=== PATIENT | female | born 1990 | race Caucasian/White ===

== ENCOUNTER 2023-05-28 01:17 | Emergency (ER) | payer SELFPAY ==
[2023-05-28 01:19] VITALS: BP 123/83; PULSE 75; RESP 16; TEMP 36.6; O2SAT 99; BMI 15.6
--- NOTE | 2023-05-28 01:23 | HMH.EDGENADL ---
Discharge Plan Disposition Patient Disposition: Home, Self-Care Prescriptions Prescriptions: New nitrofurantoin macrocrystal 100 mg capsule 100 mg PO BID 5 Days Qty: 10 0RF Rx Instructions: must administer with a meal/food ondansetron HCl 4 mg tablet 4 mg PO Q8H PRN (Reason: nausea and vomiting) 5 Days Qty: 30 0RF oxycodone 5 mg tablet 5 mg PO Q8H PRN (Reason: pain) Qty: 12 0RF Referrals Follow up/Referrals: Provider,Referral, MD [Primary Care Provider] - See instructions Activity Restrictions/Add. Instructions Additional Instructions/Restrictions: Please take Macrobid as prescribed for urinary tract infection. Please take Tylenol and ibuprofen as needed for pain. Please take oxycodone as needed for severe pain. Please take Zofran as needed for nausea and vomiting. Please follow-up with one of our [employer] for further assessment. Clinical Impressions Clinical Impression: Miscarriage, Abdominal pain, Vagina bleeding, UTI (urinary tract infection) Instructions Patient Instructions: DI for Acute Abdominal Pain Discharge ED Provider: Sean Sosa General Adult HPI General Chief complaint: Abdominal Pain Stated complaint: possible miscarrage,bleeding Time Seen by Provider: 05/28/23 01:20 History of Present Illness HPI narrative: 32-year-old female, G2, P1 presents with worsening crampy abdominal pain and intermittent vaginal bleeding. She reports that she found out she was on the of this month, 3 days ago, when she presented to an outside ER for abdominal pain. At that time she was noted to have a beta-hCG of 973, she had a transvaginal ultrasound which showed intrauterine gestational sac and normal bilateral ovaries. She was given RhoGAM at that time. She reports that her last menstrual period began on April 10. Her prior was many years ago, and resulted with an uncomplicated vaginal delivery. She reports that she is continue to have occasional clots and drips of blood, reports intermittent sharp elevated pain. Related Data Previous Rx's Medication Instructions Recorded nitrofurantoin macrocrystal 100 mg 100 mg PO BID 5 days #10 caps 05/28/23 capsule ondansetron HCl 4 mg tablet 4 mg PO Q8H PRN nausea and 05/28/23 vomiting 5 days #30 tabs oxycodone 5 mg tablet 5 mg PO Q8H PRN pain #12 tabs 05/28/23 Allergies Allergy/AdvReac Type Severity Reaction Status Date / Time No Known Allergies Allergy Verified 05/28/23 01:40 [facility] Disclaimer: The information contained in this section may have been updated after the patient was seen, as this information can be updated by other users. Social History Smoking Status: Current every day smoker alcohol intake: never current occupational status: employed Travel in the last 8 weeks: None ROS Obtained: Yes All systems reviewed & no additional complaints except as documented Physical Exam General General appearance: alert and in distress (Secondary to pain) Head Head exam: atraumatic and normocephalic Eye Eye exam: Present normal appearance, PERRL and EOMI ENT ENT exam: Present normal oropharynx and normal external ear exam Neck Neck exam: Present normal inspection and full ROM Chest Chest inspection: Present normal inspection and symmetric chest wall rise; Absent tenderness Respiratory Respiratory exam: Present normal lung sounds bilaterally; Absent respiratory distress Cardiovascular Cardiovascular exam: Present regular rate and normal rhythm Abdominal Exam Abdominal exam: Present soft and tenderness (Pelvic); Absent distention or guarding Extremities Exam Extremities exam: Present normal inspection; Absent edema or joint swelling Back Exam Back exam: Present normal inspection; Absent tenderness Neurological Exam Neurological exam: Present alert and oriented X3; Absent motor sensory deficit Psychiatric Psychiatric exam: Present normal affect and normal mood Skin Skin exam: Present war
--- NOTE | 2023-05-28 01:31 | PC.NURSE ---
in room talking with patient at this time.
[2023-05-28 01:46] LABS: Microscopic, Urine URINE MICROSCOPIC (MICROSCOPIC)
[2023-05-28 01:48] LABS: Basophils % 0.6 % (0.1-2.0); Eosinophils # 0.2 K/mm3 (0.0-0.4); Eosinophils % 2.5 % (0.1-12.0); Hematocrit 38.6 % (37.0-47.0); Hemoglobin 12.9 g/dL (12.2-16.2); Lymphocytes # 2.5 K/mm3 (0.7-4.5); Lymphocytes % 41.9 % (10-50); Mean Corpuscular HGB Conc 33.5 g/dL (31.8-35.4); Mean Corpuscular Hemoglobin 31.3 pg (27.0-31.2); Mean Corpuscular Volume 93.3 fl (81-99); Mean Platelet Volume 7.7 fl (7.4-10.4); Monocytes # 0.4 K/mm3 (0.1-1.0); Monocytes % 6.2 % (1.7-9.3); Neutrophils % 48.8 % (37.0-80.0); Platelet Count 258 K/mm3 (142-424); Red Blood Count 4.14 M/mm3 (4.20-5.40); Red Cell Distribution Width 12.7 % (11.5-17.5); White Blood Count 6.1 K/mm3 (4.8-10.8)
[2023-05-28 01:54] LABS: Alanine Aminotransferase 23 U/L (12-78); Alkaline Phosphatase 67 U/L (38-126); Aspartate Amino Transferase 30 U/L (14-36); Bilirubin,Total 0.3 mg/dl (0.2-1.3); Blood Urea Nitrogen 9 mg/dl (7-17); Carbon Dioxide 17 mmol/L (22.0-30.0); Chloride 112 mmol/L (98-107); Creatinine Clearance Estimated 118 mL/min (50-200); Estimated Glomerular Filt Rate 145 ml/min (>60); GFR (African American) 175 ML/MIN (>60)
[2023-05-28 01:56] LABS: Albumin Level 4.2 g/dl (3.5-5.0); Albumin/Globulin Ratio 1.3 (1.1-1.8); Anion Gap 13.6 mEq/L (5-15); Globulin 3.3 g/dL (1.3-3.2); Glucose 95 mg/dl (74-100); Potassium 3.6 mmoL/L (3.5-5.1); Sodium 139 mmol/L (136-145); Total Protein,Serum 7.5 g/dl (6.3-8.2)
--- NOTE | 2023-05-28 01:57 | PC.NURSE ---
called [facility] emergency room for release of medical records at this time.
[2023-05-28 02:00] VITALS: PULSE 61; O2SAT 96
--- NOTE | 2023-05-28 02:03 | PC.NURSE ---
Faxed release of medical records for leonela Rice at this time.
[2023-05-28 02:12] LABS: HCG,Quantitative 42 mIU/ml (0-5.42)
[2023-05-28 02:14] LABS: Appearance,Urine SL CLOUDY (Clear); Bilirubin,Urine Negative (Negative); Blood, Urine 3+ (Negative); Color,Urine YELLOW (Yellow); Glucose,Urine (UA) Negative (Negative); Ketones,Urine Negative (Negative); Leukocyte Esterase,Urine 3+ (Negative); Nitrate,Urine Negative (Negative); Protein,Urine Negative (Negative); Urobilinogen,Urine 0.2 EU/dl (0.2)
[2023-05-28 02:28] LABS: Bacteria,Urine 2+ /lpf; WBC,Urine 20-50 #/hpf (0-3)
--- NOTE | 2023-05-28 02:28 | PC.NURSE ---
in room talking with patient at this time.
[2023-05-28 02:30] VITALS: BP 126/83; PULSE 58; RESP 14; O2SAT 100
[2023-05-28 02:47] VITALS: BP 126/83; PULSE 77; RESP 16; TEMP 36.8; O2SAT 100
== END 2023-05-28 02:57 | disposition home or self-care (01) ==
PROVIDERS: Emergency Provider Emergency Medicine
DX: O03.9 Complete or unspecified spontaneous abortion without complication (principal); N39.0 Urinary tract infection, site not specified
CPT/HCPCS: 80053; 81001; 84702; 85025; 86850; 86870; 87086; 96361; 96374; 96375; 99285; J2405

== ENCOUNTER 2024-04-17 09:48 | Outpatient (CLI) | payer MEDICAID, SELFPAY ==
[2024-04-17 10:07] LABS: Basophils # 0.1 K/mm3 (0-0.2); Basophils % 0.6 % (0.1-2.0); Eosinophils # 0.1 K/mm3 (0.0-0.4); Eosinophils % 1.3 % (0.1-12.0); Lymphocytes # 1.4 K/mm3 (0.7-4.5); Lymphocytes % 15.9 % (10-50); Mean Corpuscular HGB Conc 33.4 g/dL (31.8-35.4); Mean Corpuscular Hemoglobin 31.7 pg (27.0-31.2); Mean Corpuscular Volume 94.9 fl (81-99); Mean Platelet Volume 7.6 fl (7.4-10.4); Monocytes # 0.6 K/mm3 (0.1-1.0); Monocytes % 6.4 % (1.7-9.3); Neutrophils # 6.8 K/mm3 (1.8-7.8); Neutrophils % 75.8 % (37.0-80.0); Platelet Count 290 K/mm3 (142-424); Red Blood Count 3.79 M/mm3 (4.20-5.40); Red Cell Distribution Width 13.1 % (11.5-17.5); White Blood Count 8.9 K/mm3 (4.8-10.8)
[2024-04-17 11:54] LABS: HIV (1&2) Antibody Rapid NONREACTIVE (NONREACTIVE)
[2024-04-18 07:24] LABS: HCV Ab Non Reactive (Non Reactive); Hepatitis B Surface Antigen Negative (Negative); Rubella Antibodies, IgG <0.90 index (Immune >0.99)
== END 2024-04-17 23:59 | disposition home or self-care (01) ==
LOC: LAB 09:50
PROVIDERS: Visit Provider Obstetrics & Gynecology
DX: Z34.81 Encounter for supervision of other normal pregnancy, first trimester (principal)
CPT/HCPCS: 36415; 85025; 86593; 86762; 86803; 86850; 87086; 87340; 87389

== ENCOUNTER 2024-04-21 13:22 | Outpatient (CLI) | payer MEDICAID, SELFPAY ==
--- NOTE | 2024-04-21 13:22 | US_ITS ---
PROCEDURE: US OB >= 14 WEEKS FETUS CLINICAL INDICATION: Dates/Anatomy Scan COMPARISON: No exams were available for comparison FINDINGS: Transabdominal sonographic images of the pelvis were obtained. Her established due date is unknown. Single viable intrauterine gestation. Cephalic position. Placenta: Posteriorplacenta grade 1. There are multiple placental lakes. There is an average amount of fluid. The cervix appears satisfactory. Closed and measuring 3.13 cm in length. Complete survey performed and was unremarkable on the submitted images as in PACS. No discrete anomalies identified on survey imaging by technologist. Active fetus. Three-vessel cord with satisfactory umbilical cord insertion. 4- chamber heart noted. Situs, aortic arch, LVOT, RVOT, three-vessel view appear normal. A small echogenic foci is noted in the left ventricle. Survey of brain & ventricles Unremarkable. Cerebellum, thalamus, choroid plexus, cisterna magna appear normal. Face and neck survey unremarkable. Profile, nasion, lips and nose appeared normal. Diaphragm and chest views unremarkable. Abdomen: Both kidneys noted and unremarkable. Stomach and bladder noted and satisfactory. Spine: Survey of the spine satisfactory with no anomalies identified nor imaged. Cervical, thoracic, lower spine appear normal. Both arms and legs noted. Amniotic Fluid: Adequate. MVP 4.33 cm. Measurements: Average ultrasound age 25weeks 0 days. Estimated due date by ultrasound age 0308/04/2024. Estimated weight 725g BPD = 25weeks 3days HC = 24weeks 5days AC = 24weeks 6days FL = 24weeks 4days Heart Rate = 143bpm Cerebellum = 24weeks 3days Humerus = 23weeks 3days HC/AC is 1.12 FL/BPD is 0.7 FL/AC is 0.22 IMPRESSION: 1. Fetus within the uterine cavity in the cephalic presentation with a posterior placenta grade 1. There are multiple placental lakes. 2. cardiac activity is seen and measures 143 BPM. 3. Anatomical scan appears normal. A small likely nonsignificant echogenic foci is seen within the left ventricle. Suggest follow-up at 28 weeks. 4. Fetus measures 25 weeks 0 days. Her JENNIFER will be 08/04/2024 based on this ultrasound. Dictated by: Lawrence Gilbert MD 04/21/2024 15:49 Lawrence Gilbert MD in OV 04/21/2024 15:49
== END 2024-04-21 23:59 | disposition home or self-care (01) ==
LOC: RAD 13:22
PROVIDERS: PCP Obstetrics & Gynecology; Visit Provider Obstetrics & Gynecology
DX: O26.842 Uterine size-date discrepancy, second trimester (principal); Z3A.20 20 weeks gestation of pregnancy; Z36.3 Encounter for antenatal screening for malformations
CPT/HCPCS: 76805

== ENCOUNTER 2024-04-29 11:51 | Outpatient (CLI) | payer MEDICAID, SELFPAY ==
[2024-05-02 09:21] LABS: Treponema pallidum Ab (FTA-ABS NONREACTIVE
== END 2024-04-29 23:59 | disposition home or self-care (01) ==
LOC: LAB 11:51
PROVIDERS: Visit Provider Obstetrics & Gynecology
DX: A53.0 Latent syphilis, unspecified as early or late (principal)
CPT/HCPCS: 36415; 86780

== ENCOUNTER 2024-05-19 09:41 | Outpatient (CLI) | payer MEDICAID, SELFPAY ==
[2024-05-19 10:29] LABS: Basophils # 0.1 K/mm3 (0-0.2); Basophils % 0.5 % (0.1-2.0); Eosinophils # 0.2 K/mm3 (0.0-0.4); Eosinophils % 1.8 % (0.1-12.0); Hemoglobin 12.1 g/dL (12.2-16.2); Lymphocytes # 1.6 K/mm3 (0.7-4.5); Lymphocytes % 14.7 % (10-50); Mean Corpuscular HGB Conc 34.6 g/dL (31.8-35.4); Mean Corpuscular Hemoglobin 31.8 pg (27.0-31.2); Mean Corpuscular Volume 91.9 fl (81-99); Mean Platelet Volume 7.9 fl (7.4-10.4); Monocytes # 0.6 K/mm3 (0.1-1.0); Monocytes % 5.6 % (1.7-9.3); Neutrophils # 8.4 K/mm3 (1.8-7.8); Neutrophils % 77.3 % (37.0-80.0); Platelet Count 279 K/mm3 (142-424); White Blood Count 10.9 K/mm3 (4.8-10.8)
[2024-05-19 10:37] LABS: Chloride 105 mmol/L (98-107); Potassium 3.6 mmoL/L (3.5-5.1); Sodium 130 mmol/L (136-145)
[2024-05-19 10:39] LABS: Blood Urea Nitrogen 8 mg/dl (7-17); Estimated Glomerular Filt Rate 117 ml/min (>60); GFR (African American) 141 ML/MIN (>60)
[2024-05-19 10:40] LABS: Alanine Aminotransferase 22 U/L (12-78); Anion Gap 6.6 mEq/L (5-15); Aspartate Amino Transferase 29 U/L (14-36); Calcium 8.7 mg/dl (8.4-10.2); Carbon Dioxide 22 mmol/L (22.0-30.0); Glucose 133 mg/dl (74-100)
[2024-05-19 10:52] LABS: Glucose,Fasting 135 mg/dl (74-100)
[2024-05-19 11:12] LABS: Activated Partial Thrombo Time 26.7 seconds (22.8-30.6); Fibrinogen 246 mg/dL (229.9-363.5); INR 0.86 (0.9-1.1); Prothrombin Time 9.8 seconds (10.1-12.5)
[2024-05-19] MEDS: RHO(D) IMMUNE GLOBULIN 1,500 UNIT (300MCG) SYRINGE 300 MCG IM (11:26)
[2024-05-19 11:28] VITALS: BP 112/61; PULSE 61; RESP 18; O2SAT 97
[2024-05-19 11:57] LABS: Hemoglobin A1C 4.7 % (4.0-6.0)
[2024-05-19 12:13] LABS: Uric Acid 3.3 mg/dl (2.5-6.2)
[2024-05-19 14:53] LABS: RPR W/RFX Titers Nonreactive (Nonreactive)
[2024-05-19 17:43] LABS: Glucose 1 Hour 135 mg/dL (74-100)
== END 2024-05-19 11:28 | disposition home or self-care (01) ==
LOC: INF 09:43
PROVIDERS: Visit Provider Obstetrics & Gynecology
DX: Z3A.37 37 weeks gestation of pregnancy (principal); O26.899 Other specified pregnancy related conditions, unspecified trimester; F12.90 Cannabis use, unspecified, uncomplicated; O99.320 Drug use complicating pregnancy, unspecified trimester; O09.30 Supervision of pregnancy with insufficient antenatal care, unspecified trimester
CPT/HCPCS: 36415; 80048; 82951; 83036; 84450; 84460; 84550; 85025; 85384; 85610; 85730; 86592; 96372; J2790

== ENCOUNTER 2024-05-30 10:31 | Outpatient (CLI) | payer MEDICAID, SELFPAY ==
--- NOTE | 2024-05-30 10:31 | US_ITS ---
PROCEDURE: US OB FOLLOW UP CLINICAL INDICATION: demonstrated small intracardiac echogenic focus. COMPARISON: US US OB >= 14 WEEKS FETUS from 04/21/2024 FINDINGS: Transabdominal sonographic images of the pelvis were obtained. The following parameters are obtained: From her established due date she is 30weeks 5days Viable fetus in the breech presentation with a posterior placenta grade 2. The previously described placental lakes are not well visualized today. The cervix measures 3.35 cm. heart rate: 132bpm bpm. BPD: 31weeks 2days, 55 percentile HC: 31weeks 3days, 29 percentile AC: 30weeks 3days, 36 percentile FL: 28weeks 2days, <2 percentile HC/AC: 1.09 FL/BPD: 0.68 FL/AC: 0.2 Growth percentile: Amniotic fluid index: 19.49cm, MVP 5.85 cm No obvious anomalies evident. profile seen, stomach, bladder, kidneys, three-vessel cord, four chamber heart appear normal. There continues to be a small intracardiac echogenic foci in the left ventricle. It measures 3 mm. There is an area in the maternal bladder that is echogenic with posterior shadowing. Could represent a maternal stone or mural nodule. It measures 2.3 cm x 2.2 cm. Suggest follow-up. IMPRESSION: 1. Viable fetus in the breech presentation with a posterior placenta grade 2. The previously described placental lakes have resolved. 2. The fluid is within normal limits with an amniotic fluid index 19.49 cm, MVP 5.85 cm. 3. Limited anatomical scan appears normal. There continues to be a small intracardiac echogenic foci in the left ventricle measuring 3 mm. Has not significantly changed. 4. Within the maternal bladder is an echogenic area with posterior shadowing. This could represent a maternal bladder stone or possibly a mural nodule. It measures 2.3 x 2.2 cm. Suggest follow-up. 5. There has been good interval growth with the fetus currently 14th percentile. The femur length is 2 weeks behind. Dictated by: Lawrence Gilbert MD 05/30/2024 17:40 Lawrence Gilbert MD in OV 05/30/2024 17:40
== END 2024-05-30 23:59 | disposition home or self-care (01) ==
LOC: RAD 10:31
PROVIDERS: PCP Obstetrics & Gynecology; Visit Provider Obstetrics & Gynecology
DX: Z36.2 Encounter for other antenatal screening follow-up (principal); O26.893 Other specified pregnancy related conditions, third trimester; Z67.91 Unspecified blood type, Rh negative; O99.323 Drug use complicating pregnancy, third trimester; F12.90 Cannabis use, unspecified, uncomplicated; F17.290 Nicotine dependence, other tobacco product, uncomplicated; Z3A.30 30 weeks gestation of pregnancy
CPT/HCPCS: 76816

== ENCOUNTER 2024-07-09 16:32 | Outpatient (CLI) | payer MEDICAID, SELFPAY | END 2024-07-09 23:59 | disposition home or self-care (01) | LOC: LAB.DROPOF 16:32 | PROVIDERS: PCP Obstetrics & Gynecology; Visit Provider Obstetrics & Gynecology | DX: Z34.83 Encounter for supervision of other normal pregnancy, third trimester (principal) | CPT/HCPCS: 86403 ==

== ENCOUNTER 2024-08-06 13:27 | Inpatient (IN) | payer MEDICAID, SELFPAY ==
[2024-08-06 14:00] VITALS: BP 112/63; PULSE 100; RESP 18; TEMP 36.8; O2SAT 98; BMI 26.4
[2024-08-06 14:39] VITALS: BMI 26.4
[2024-08-06 15:17] LABS: Basophils # 0.1 K/mm3 (0-0.2); Basophils % 0.4 % (0.1-2.0); Eosinophils # 0.1 K/mm3 (0.0-0.4); Eosinophils % 0.6 % (0.1-12.0); Hematocrit 31.3 % (37.0-47.0); Hemoglobin 10.4 g/dL (12.2-16.2); Lymphocytes # 1.2 K/mm3 (0.7-4.5); Mean Corpuscular HGB Conc 33.2 g/dL (31.8-35.4); Mean Corpuscular Hemoglobin 29.3 pg (27.0-31.2); Mean Corpuscular Volume 88.2 fl (81-99); Mean Platelet Volume 10.4 fl (7.4-10.4); Monocytes % 8.4 % (1.7-9.3); Neutrophils # 9.2 K/mm3 (1.8-7.8); Neutrophils % 79.7 % (37.0-80.0); Platelet Count 264 K/mm3 (142-424); Red Blood Count 3.55 M/mm3 (4.20-5.40); Red Cell Distribution Width 12.2 % (11.5-17.5); White Blood Count 11.5 K/mm3 (4.8-10.8)
[2024-08-06 15:24] LABS: Microscopic, Urine URINE MICROSCOPIC (MICROSCOPIC)
[2024-08-06] MEDS: miSOPROStol 100MCG TABLET 50 MCG PO ×2 (15:40→21:48)
[2024-08-06 15:46] LABS: Bilirubin,Urine Negative (Negative); Blood, Urine TRACE-I (Negative); Color,Urine YELLOW (Yellow); Glucose,Urine (UA) Negative (Negative); Ketones,Urine Negative (Negative); Leukocyte Esterase,Urine 2+ (Negative); Nitrate,Urine POSITIVE (Negative); PH,Urine 6.5 (5.0-8.5); Protein,Urine Negative (Negative); Specific Gravity, Urine 1.025 (1.005-1.030); Urobilinogen,Urine 0.2 EU/dl (0.2)
[2024-08-06 15:53] LABS: Appearance,Urine Slightly Cloudy (Clear)
[2024-08-06 19:43] LABS: Bacteria,Urine 2+ /lpf
[2024-08-06 20:41] LABS: Benzodiazepines Screen,Urine Negative ng/ml (<200)
[2024-08-06 20:42] LABS: Amphetamine/Metha Screen,Urine Negative ng/ml (<1000)
[2024-08-06 20:43] LABS: Barbiturates Screen,Urine Negative ng/ml (<200); Cannabinoid Screen,Urine Negative ng/ml (<50)
[2024-08-06 20:44] LABS: Cocaine Screen,Urine Negative ng/ml (<300)
[2024-08-06 20:45] LABS: Methadone Screen,Urine Negative ng/ml (<300); Opiate Screen,Urine Negative ng/ml (<300)
[2024-08-06 20:46] LABS: Phencyclidine Screen,Urine Negative ng/ml (<25)
--- NOTE | 2024-08-06 21:15 | P.HP_ITS ---
OB - H&P: HPI Antepartum History of Present Illness Chief complaint: Scheduled induction of labor History of present illness: Ms Sana De Santiago is a 33 yo at 40w2d who presents to [facility] L&D for scheduled induction of labor for postdates. She admits to irregular contractions. Baby is active. She had late care starting at 24 weeks but good care since that time. GBS negative. History of Present Criteria for establishing EDC:: LMP confirmed by 2nd trimester US Ultrasounds: normal mid trimester US Obstetrical complications: none Medical complications: none Labs Blood type: O (-) negative Rubella: nonimmune RPR/VDRL: reactive (but FTA-ABS confirmation was non reactive) GBS status: negative HBsAG: negative PFSH PFS Disclaimer: The information contained in this section may have been updated after the patient was seen, as this information can be updated by other users. Medical History (Updated 08/06/24 @ 21:23 by Deborah Plata DO) Post-term , 40-42 weeks of gestation ASCUS with positive high risk HPV cervical Rh negative state in antepartum period Marijuana use during Vaping nicotine dependence, tobacco product Late care History of miscarriage Surgical History Hx of wisdom tooth extraction Family History Other Cancer Social History (Updated 08/06/24 @ 15:23 by Asael Lantigua RN) Smoking Status: Current every day smoker alcohol intake: never current occupational status: unemployed Travel in the last 8 weeks: None Have you lived/traveled outside US in past 30 days?: No Contact w/someone who lives/traveled outside US past 30 days?: No Exposure to someone with infectious disease in past 14 days?: No Do you have a fever (greater than 100.4 F or 38 C)?: No Have you tested positive for COVID-19: No Exposed to someone with COVID-19 in past 14 days?: No Do you have a sore throat?: No Do you have a cough?: No Do you have any weakness?: No Are you experiencing any nausea/vomitting?: No Do you have any diarrhea?: No Are you experiencing any unusual bleeding?: No Do you have any muscle aches/pain?: No Do you have any abdominal pain?: No Are you experiencing loss of taste or smell?: No Other Medical History Have you received the Flu Vaccine for this season: No Have you received the Pneumonia Vaccine: No Review of Systems Review of Systems Review of systems:: pertinent systems reviewed and negative unless documented below *Genitourinary Comments: + irregular contractions Meds Home Medications and Allergies Home Medications ?Medication ?Instructions ?Recorded ?Confirmed ?Type No Known Home Medications 08/06/24 08/06/24 History New Prescriptions to Start Prescriptions: Allergies Allergy/AdvReac Type Severity Reaction Status Date / Time cinnamon Allergy Severe Swelling Verified 08/04/24 13:18 of Lip/Tongue/Throat OB - H&P: Exam Physical Exam Vital signs: Temp Pulse Resp BP Pulse Ox O2 Del Method 98.3 F 100 H 18 112/63 98 Room Air 08/06/24 14:00 08/06/24 14:00 08/06/24 14:00 08/06/24 14:00 08/06/24 14:00 08/06/24 14:00 Constitutional no acute distress and cooperative Routine HEENT Exam Head: Present normocephalic and atraumatic Eye: Absent conjunctivae pink ENT: Present mucous membranes moist Routine Neck Exam Present full ROM Routine Respiratory Exam Present CTA bilaterally and normal respiratory effort Routine Cardiovascular Exam Present RRR Routine Abdominal Exam Present soft (Gravid); Absent tenderness Routine Rectal Exam Patient deferred: visual exam Routine Exam External: Present normal urethra appearance; Absent erythema, swelling, tenderness, lesions, lacerations or vulvar erythema Routine Extremities Exam Present full ROM; Absent edema or calf tenderness Routine Neurological Exam Present alert, moving all extremities and normal speech Routine Psychiatric Exam Present normal affect and cooperative Detailed Labor and Delivery Exam Dilation (cm): 0 station: -3 Membranes: intact Baseline heart rate: 135 monitor accelerations: Present monitor decelerations: None assisted variability: Moderate (11-25) Contraction frequency (min): 3 OB - Results Labs Labs: Short CBC 08/06/24 Range/Units 15:08 WBC 11.5 H (4.8-10.8) K/mm3 Hgb 10.4 L (12.2-16.2) g/dL Hct 31.3 L (37.0-47.0) % Plt Count 264 (142-424) K/mm3 Urine 08/06/24 Range/Units 15:15 Urine Color Yellow (Yellow) Urine Appearance Slightly cloudy (Clear) Urine pH 6.5 (5.0-8.5) Ur Specific [place] 1.025 (1.005-1.030) Urine Protein Negative (Negative) Urine Glucose (UA) Negative (Negative) OB - A/P Antepartum (1) Post-term , 40-42 weeks of gestation: Status: Acute (2) Marijuana use during : Status: Acute (3) Vaping nicotine dependence, tobacco product: Status: Acute (4) Rh negative state in antepartum period: Status: Acute Additional Plan Additional Information:: Admit to [facility] L&D for sheduled induction of labor Induction of labor with Cytotec followed by Pitocin GBS negative Close monitoring
[2024-08-07 03:38] VITALS: BP 108/59; PULSE 63; RESP 16; TEMP 36.7; O2SAT 98
[2024-08-07] MEDS: miSOPROStol 100MCG TABLET 50 MCG PO (03:47)
[2024-08-07 07:35] VITALS: BP 111/65; PULSE 71; RESP 18; TEMP 36.8; O2SAT 98
[2024-08-07] MEDS: DEXTROSE 5%-LACTATED RINGERS 1,000 ML 125 ML IV (09:42)
[2024-08-07] MEDS: OXYTOCIN/RINGERS LACTATE 30 UNITS/500 ML BAG IV (09:42)
[2024-08-07] MEDS: BUTORPHANOL TARTRATE 1 MG/ML VIAL IV (11:49)
--- NOTE | 2024-08-07 12:03 | EXP.LABOR.NO ---
Labor Note Subjective: Date: 08/07/24 Time: 12:03 irregular contractions Comment:: Doing well. Reports some vaginal bleeding 1 to 2 hours ago. Reports irregular contractions/pelvic pressure but states it is all manageable at this time Objective: NST:: Reactive Contractions:: infrequent Cervical Dilation:: 3-4 Effacement:: 70% Station: -3 Membranes: ruptured and artificially ruptured Comment:: AROM without complications. Category 1 strip following Fetus: Monitoring?: Yes monitoring type:: External Assessment: Labor progressing?: Yes Plan: Continue to monitor?: Yes Start pushing?: No
[2024-08-07 14:35] LABS: Cord Blood PH 7.32 (7.35-7.45)
[2024-08-07 14:36] LABS: Cord Blood PH 7.32 (7.35-7.45)
[2024-08-07 15:16] LABS: RPR W/RFX Titers Nonreactive (Nonreactive)
--- NOTE | 2024-08-07 15:16 | P.PCN_ITS ---
Delivery Note Delivery Date:: 08/07/24 Delivery Time:: 14:19 Anesthesia Type: None Was labor medically induced?: Yes Induction method: per misoprostol protocol Gestational age (weeks): 40 delivered prior to 39 weeks?: No Infant Gender: Female at 1 minute: 7 (2 color, 1 cry) at 5 minutes: 8 (2 color) Delivery Procedure:: Preoperative diagnosis: 1. at 40 completed this weeks gestation, vertex 2. Rh negative 3. GBS negative 4. Rubella nonimmune Postoperative diagnosis: 1. at 40 completed this weeks gestation, vertex 2. Rh negative 3. GBS negative 4. Rubella nonimmune EBL: 200mL Specimen: 1. Cord blood 2. Venous cord gas Findings: 1. Liveborn viable female : [place]. Apgars 7/8 at 1 and 5 minutes respectively. Weight pending at time of dictation Procedure: Nonoperative spontaneous vaginal delivery Complications: None Sana De Santiago is a 33-year-old -0-1-1 at 40 weeks and 3 days gestation who was brought in last night for elective induction of labor. She received 3 doses of Cytotec and this morning was noted to be 3/70/-3. She had artificial rupture of membranes revealing clear fluid. Pitocin was started for labor augmentation. She progressed to complete without epidural anesthesia. The was noted to be in direct OA position. With effective maternal pushing there was a nonoperative spontaneous vaginal delivery at 1419. Compound presentation with the left hand near the face noted. There was no nuchal cord. The anterior left hand, arm, and shoulder delivered, followed by the posterior shoulder without dystocia. The body and lower extremities delivered without difficulty. The was bulb suctioned and was crying following delivery. The infant was placed on the maternal abdomen and greater than one minute was appreciated for delayed cord clamping. The umbilical cord was doubly clamped and cut. Cord blood was collected and sent for routine testing. Venous cord gases were collected. The placenta delivered with cord traction and suprapubic contertraction. Pitocin was started. The uterus was firm and bleeding was minimal. The perineum, vaginal ricardo, cervix, and paraurethral area were inspected thoroughly. There was a small hemostatic abrasion near the periurethral area. This was not repaired secondary to no epidural anesthesia and it was superficial and hemostatic. The patient tolerated the delivery well. All counts were correct by nursing. Mother and infant were doing well and bondin g upon my leaving the delivery room. Placental Delivery Description: Spontaneous
[2024-08-07] MEDS: IBUPROFEN 400 MG TABLET 800 MG PO ×2 (15:52→23:35)
[2024-08-07] MEDS: ACETAMINOPHEN 500MG TAB 1000 MG PO ×2 (15:53→21:09)
[2024-08-07] MEDS: BENZOCAINE-MENTHOL SPRAY 56GM CAN TP (16:35)
[2024-08-07] MEDS: WITCH HAZEL 40 PADS/BOX 1 EACH TP (16:36)
[2024-08-07 19:54] VITALS: BP 111/57; PULSE 67; RESP 17; TEMP 37.2; O2SAT 97
[2024-08-07] MEDS: NITROFURANTOIN 100MG CAPSULE 100 MG PO (21:09)
[2024-08-08 03:48] VITALS: BP 115/77; PULSE 79; RESP 16; TEMP 37; O2SAT 98
[2024-08-08] MEDS: ACETAMINOPHEN 500MG TAB 1000 MG PO ×2 (03:49→19:21)
[2024-08-08 05:55] LABS: Basophils # 0.1 K/mm3 (0-0.2); Basophils % 0.5 % (0.1-2.0); Eosinophils # 0.1 K/mm3 (0.0-0.4); Eosinophils % 0.7 % (0.1-12.0); Hematocrit 31.4 % (37.0-47.0); Hemoglobin 10.4 g/dL (12.2-16.2); Lymphocytes # 1.7 K/mm3 (0.7-4.5); Lymphocytes % 13.6 % (10-50); Mean Corpuscular HGB Conc 33.1 g/dL (31.8-35.4); Mean Corpuscular Hemoglobin 29.5 pg (27.0-31.2); Mean Platelet Volume 10.3 fl (7.4-10.4); Monocytes # 1.4 K/mm3 (0.1-1.0); Monocytes % 11.3 % (1.7-9.3); Neutrophils # 9.4 K/mm3 (1.8-7.8); Platelet Count 245 K/mm3 (142-424); Red Blood Count 3.53 M/mm3 (4.20-5.40); Red Cell Distribution Width 12.4 % (11.5-17.5); White Blood Count 12.8 K/mm3 (4.8-10.8)
--- NOTE | 2024-08-08 10:15 | EXP.ACUTE.PN ---
Subjective *Date: 08/08/24 *Time: 10:15 Interval history: She is doing very well today. She is eating and drinking and ambulating. She is breast-feeding. Her lochia is normal. Medical Exam Vital signs and Labs for Last 24 Hours: Vital Signs Temp Pulse Resp BP Pulse Ox O2 Del Method 08/08/24 03:48 98.6 F 79 16 115/77 98 Room Air 08/07/24 19:54 98.9 F 67 17 111/57 L 97 Room Air Laboratory Results - last 24 hr 08/06/24 15:08: RPR w/Rflx to Titer Nonreactive 08/07/24 14:30: Cord ABG pH 7.32 L 08/07/24 14:31: Cord ABG pH 7.32 L 08/08/24 05:45: WBC 12.8 H, RBC 3.53 L, Hgb 10.4 L, Hct 31.4 L, MCV 89.0, MCH 29.5, MCHC 33.1, RDW 12.4, Plt Count 245, MPV 10.3, Neut % (Auto) 73.0, Lymph % (Auto) 13.6, [place] % (Auto) 11.3 H, Eos % (Auto) 0.7, Baso % (Auto) 0.5, Neut # (Auto) 9.4 H, Lymph # (Auto) 1.7, [place] # (Auto) 1.4 H, Eos # (Auto) 0.1, Baso # (Auto) 0.1, Screen Negative, Baby's Rh Status Positive I & O for Labs for Last 24 Hours: Intake & Output 08/05/24 08/06/24 08/07/24 08/08/24 11:59 11:59 11:59 11:59 Weight 169 lb Microbiology Reports for the Last 24 Hours: Microbiology 08/06/24 15:15 Urine,Clean Catch Urine Culture - Preliminary Head: Present normocephalic Neck: Present normal inspection Respiratory: Present normal respiratory effort; Absent accessory muscle use Assessment and Plan *Assessment and plan (1) Post-term , 40-42 weeks of gestation: Status: Acute Category: Medical Code(s): O48.0 - Post-term (2) Normal delivery at term: Status: Acute Category: Medical Code(s): O80 - Encounter for full-term uncomplicated delivery Plan She is doing very well this morning. She is eating and drinking and ambulating. She is breast-feeding. Her lochia is normal. We will plan to send her home tomorrow.
--- NOTE | 2024-08-08 10:20 | SW/DCPLANNER ---
Addendum entered by Raegan Lerma 08/13/24 07:47: Infant cord screen is NEGATIVE. Original Note: I received a consult on this patient regarding marijuana use during and late care. Patient stated that she did not find out she was till February. Patient also stated that marijuana use stopped in February once she found out she was . Patient tested positive for THC on the following dates: , 05/13/24, 06/17/24. Patient and infant urine drug screens were negative at time of admission. Patient delivered infant female (Reny De Santiago) on 08/07/2024. Infant's father (Praful De Santiago 05/10/91) was at bedside during my assessment. Patient, her brother (Hoang De Santiago) and JOE (Desiree Roland) will reside at [address] [place] [address] in [place] [address]. Patient's contact number is [phone]. Patient does have one other child Magi Boothe (currently living w/ father due to patient just moving to [place]). Per patient no past Social Service involvement. Patient is currently established w/ WIC. Patient stated that she has the following items at home: crib, car seat, clothing, diapers and will be breast feeding. PED MD will be Dr Garcia and patient stated that she will have transportation to all follow up appointments. Per OB nursing staff (Michelle) stated that patient is appropriate w/ infant. Patient and are expected to discharge home tomorrow pending no setbacks. I will continue to follow up w/ OB staff for any future needs/questions for this patient.
[2024-08-08] MEDS: NITROFURANTOIN 100MG CAPSULE 100 MG PO ×2 (10:40→20:46)
[2024-08-08] MEDS: RHO(D) IMMUNE GLOBULIN 1,500 UNIT (300MCG) SYRINGE 300 MCG IM (10:40)
[2024-08-08 20:40] VITALS: BP 114/72; PULSE 74; RESP 18; TEMP 37; O2SAT 97
[2024-08-09 03:46] VITALS: BP 116/59; PULSE 77; RESP 16; TEMP 36.7; O2SAT 98
[2024-08-09] MEDS: IBUPROFEN 400 MG TABLET 800 MG PO (03:51)
[2024-08-09] MEDS: ACETAMINOPHEN 500MG TAB 1000 MG PO (03:51)
--- NOTE | 2024-08-09 09:42 | EXP.DC.SUM ---
General Admission date:: 08/06/24 Discharge date: 08/09/24 HPI HPI HPI: Ms Sana De Santiago is a 33 yo at 40w2d who presents to [facility] L[facility]D for scheduled induction of labor for postdates. She admits to irregular contractions. Baby is active. She had late care starting at 24 weeks but good care since that time. GBS negative. Hospital Course Hospital Course Hospital Course: She was admitted on the evening prior to delivery and received 3 doses of Cytotec 50 mg. She subsequently had her membranes ruptured on the morning of August 07, 2024. She progressed to full dilation and delivered spontaneously a liveborn female child at 2:19 PM. The baby weighed 7 pounds 12 ounces and was 19 inches long. She had Apgars of 7 at 1 minute and 8 at 5 minutes. She has done well and has remained afebrile throughout her hospitalization. She is eating and drinking and ambulating. She is breast-feeding. Her lochia is normal. She has O Rh- blood and has received RhoGAM. She is rubella nonimmune and was offered MMR. She be discharged home to follow-up in 2 weeks time. She would like to go back on her control pills and will start these in 6 weeks time. She was given the usual instructions with respect to limiting her activity, driving and sexual activity. Her condition on discharge is stable and improved. Exam Data for Last 24 hours Vital signs and Labs for Last 24 Hours: Temp Pulse Resp BP Pulse Ox O2 Del Method 98.1 F 77 16 116/59 L 98 Room Air 08/09/24 03:46 08/09/24 03:46 08/09/24 03:46 08/09/24 03:46 08/09/24 03:46 08/09/24 03:46 I & O for Last 24 hours: Intake & Output 08/06/24 08/07/24 08/08/24 08/09/24 11:59 11:59 11:59 11:59 Weight 169 lb Microbiology Reports for the Last 24 Hours: Microbiology 08/06/24 15:15 Urine,Clean Catch Urine Culture - Final Constitutional Constitutional: no acute distress *Routine HEENT Exam Head: Present normocephalic *Routine Neck Exam Neck: Present full ROM *Routine Respiratory Exam Respiratory: Present normal respiratory effort; Absent accessory muscle use DS: Diagnosis Discharge Diagnosis (1) Post-term , 40-42 weeks of gestation: Status: Acute Code(s): O48.0 - Post-term (2) Normal delivery at term: Status: Acute Code(s): O80 - Encounter for full-term uncomplicated delivery Meds Home Medications and Allergies Home Medications ?Medication ?Instructions ?Recorded ?Confirmed ?Type No Known Home Medications 08/06/24 08/06/24 History New Prescriptions to Start Prescriptions: Allergies Allergy/AdvReac Type Severity Reaction Status Date / Time cinnamon Allergy Severe Swelling Verified 08/04/24 13:18 of Lip/Tongue/Throat Discharge Plan Disposition Patient Disposition: Home, Self-Care Condition: Good Discharge Order Discharge Orders: Discharge Order (Routine); Ordered 08/09/24 Ordered By: Lawrence Gilbert Follow up Plan Follow up with: Deborah Plata DO [Staff Physician] - Enter time for follow up Prescriptions/Medication Reconciliation: No Action No Known Home Medications Problem Reconciliation Problems Reviewed?: Yes Patient Discharge Instructions ACTIVITY: No heavy lifting DIET: continue same diet Patient Instructions: Depression, Hemorrhage, DI for Labor and Delivery, Vaginal , DI for Pre-eclampsia Print Language: Wallisian Providers Primary Care Provider: Provider,Referral Admit Provider: Deborah Plata Attending Provider: Deborah Plata
[2024-08-09] MEDS: MEASLES,MUMPS,RUBELLA VACCINE VIAL 0.5 ML SUBCUT (10:37)
[2024-08-09] MEDS: NITROFURANTOIN 100MG CAPSULE 100 MG PO (10:38)
== END 2024-08-09 11:49 | disposition home or self-care (01) | DRG 807 ==
PROVIDERS: Obstetrics & Gynecology; Admitting Provider Obstetrics & Gynecology; Visit Provider Obstetrics & Gynecology
DX: O32.6XX0 Maternal care for compound presentation, not applicable or unspecified (principal); Z37.0 Single live birth; Z3A.40 40 weeks gestation of pregnancy; O99.334 Smoking (tobacco) complicating childbirth; F17.290 Nicotine dependence, other tobacco product, uncomplicated; Z23 Encounter for immunization; Z80.9 Family history of malignant neoplasm, unspecified; Z87.410 Personal history of cervical dysplasia
CPT/HCPCS: 36415; 59025; 80307; 81001; 82800; 85025; 85461; 86592; 86850; 87086; 90707; J0595; J2790